=== PATIENT | female | born 1995 | race Caucasian/White ===

== ENCOUNTER 2019-08-28 16:05 | Emergency (ER) | payer BC, OTHER ==
[~2019-08-28] VITALS: Ht 162.6 cm; Wt 96.8 kg
[2019-08-28] MEDS ORDERED: OXYC-517 PO (16:18)
[2019-08-28] MEDS ORDERED: VENTAER INH (16:18)
[2019-08-28] MEDS ORDERED: MORPHINE 4 MG/ML 1ML VIAL/SYRINGE (J2270) IV ONE (17:30)
[2019-08-28] MEDS ORDERED: ONDANSETRON 4MG/2ML VIAL IV ONE (17:30)
[2019-08-28 17:40] LABS: BASO % 0.3 % (0.0-1.0); EOS % 0.2 % (0.0-3.0); HEMOGLOBIN 11.3 g/dl (12.0-15.5); LYMPH # 2.8 10^3/uL (1.5-5.0); LYMPH % 23.8 % (24.0-44.0); MEAN CORPUSCULAR HEMOGLOBIN 29.1 pg (27.0-33.0); MEAN CORPUSCULAR HGB CONC 33.2 g/dl (32.0-36.5); MEAN CORPUSCULAR VOLUME 87.6 fl (80.0-96.0); MONO # 0.6 10^3/uL (0.0-0.8); MONO % 5.4 % (0.0-5.0); NEUTROPHILS # 8.2 10^3/uL (1.5-8.5); NEUTROPHILS % 69.9 % (36.0-66.0); PLATELET COUNT, AUTOMATED 245 10^3/uL (150-450); RED BLOOD COUNT 3.88 10^6/uL (4.00-5.40); WHITE BLOOD COUNT 11.7 10^3/uL (4.0-10.0)
--- NOTE | 2019-08-28 18:10 | REPVR ---
PROCEDURE INFORMATION: Exam: US Pelvis, Transvaginal Exam date and time: 08/28/2019 5:58 PM Age: 23 years old Clinical indication: Pelvic pain; Prior surgery; Surgery date: Post-operative (0-2 days); Additional info: L oophorectomy and salpingectomy yesterday with pain TECHNIQUE: Imaging protocol: Real-time transvaginal pelvic ultrasound with image documentation. Transvaginal imaging was used for better evaluation of the endometrium and adnexa. COMPARISON: No relevant prior studies available. FINDINGS: Uterus/cervix: Uterus measures 7.3 x 2.7 x 4.3 cm. Endometrial echo complex measures 6 mm. Right adnexa: Right ovary measures 3 x 1.6 x 2.8 cm. Volume 7 cc. Normal flow. Left adnexa: Status post left oophorectomy. Free fluid: Small amount of free fluid demonstrated in the cul-de-sac and left adnexal region. Finding likely represents physiologic changes. IMPRESSION: 1. Status post left oophorectomy. 2. Small amount of free fluid demonstrated in the cul-de-sac and left adnexal region. Finding likely represents physiologic changes. 3. Otherwise unremarkable. Electronically signed by: Johnny Santana On 08/28/2019 18:10:38 PM
[2019-08-28 19:55] VITALS: BP 124/57
== END 2019-08-28 19:59 | disposition home or self-care (01) ==
LOC: M ED 16:05
DX: R10.9 Unspecified abdominal pain (principal); Z98.890 Other specified postprocedural states
CPT/HCPCS: 76830; 76856; 80047; 81001; 85025; 93976; 96374; 96375; 99283; J2270; J2405

== ENCOUNTER 2019-10-14 17:46 | Emergency (ER) | payer BC, OTHER ==
[~2019-10-14] VITALS: Ht 162.6 cm; Wt 97.6 kg
[~2019-10-14 17:46] MED LIST: OXYC-517 PO; VENTAER INH
[2019-10-14] MEDS ORDERED: GIAN1TAB (18:00)
[2019-10-14 19:11] LABS: BASO # 0.1 10^3/uL (0.0-0.2); BASO % 0.6 % (0.0-1.0); EOS # 0.3 10^3/uL (0.0-0.5); EOS % 3.3 % (0.0-3.0); HEMATOCRIT 39.3 % (36.0-47.0); HEMOGLOBIN 12.8 g/dl (12.0-15.5); LYMPH # 3.9 10^3/uL (1.5-5.0); LYMPH % 39.7 % (24.0-44.0); MEAN CORPUSCULAR HEMOGLOBIN 28.4 pg (27.0-33.0); MEAN CORPUSCULAR HGB CONC 32.6 g/dl (32.0-36.5); MEAN CORPUSCULAR VOLUME 87.3 fl (80.0-96.0); MONO # 0.4 10^3/uL (0.0-0.8); MONO % 4.4 % (0.0-5.0); NEUTROPHILS # 5.1 10^3/uL (1.5-8.5); NEUTROPHILS % 51.8 % (36.0-66.0); PLATELET COUNT, AUTOMATED 294 10^3/uL (150-450); WHITE BLOOD COUNT 9.8 10^3/uL (4.0-10.0)
[2019-10-14 19:27] LABS: ALBUMIN 3.7 GM/DL (3.2-5.2); BILIRUBIN,DIRECT 0.1 MG/DL (0.0-0.2); BILIRUBIN,TOTAL 0.4 MG/DL (0.2-1.0); TOTAL PROTEIN 8.1 GM/DL (6.4-8.2)
--- NOTE | 2019-10-14 20:52 | REPVR ---
PROCEDURE INFORMATION: Exam: US Abdomen, Limited; Soft Tissue Exam date and time: 10/14/2019 8:43 PM Age: 23 years old Clinical indication: Other: Drainage; Prior surgery; Surgery date: 1-6 months; Surgery type: [employer], lt ov and tube; Additional info: Seroma umbilicus, R/O abscess TECHNIQUE: Imaging protocol: US abdomen. Real time ultrasound with image documentation. Limited exam focused on the soft tissues. COMPARISON: No relevant prior studies available. FINDINGS: Soft tissues: Imaging of the periumbilical region demonstrates a complex mass measuring 2.9 x 2.5 x 2.4 cm with a tapering shaped from superficial to deep, findings suggest that may be related to the presence of an umbilical hernia. Correlation with CT imaging suggested for confirmation, to assess for incarceration, and to exclude other etiologies. IMPRESSION: Imaging of the periumbilical region demonstrates a complex mass measuring as described above. The findings suggest that may be related to the presence of an umbilical hernia. Correlation with CT imaging suggested for confirmation, to assess for incarceration, and to exclude other etiologies. Electronically signed by: Johnny Santana On 10/14/2019 20:52:30 PM
[2019-10-14] MEDS ORDERED: ISOVUE-370 76% 100ML VIAL As Ordered ONE (21:12)
--- NOTE | 2019-10-14 23:02 | REPVR ---
PROCEDURE INFORMATION: Exam: CT Abdomen And Pelvis With Contrast Exam date and time: 10/14/2019 10:31 PM Age: 23 years old Clinical indication: Abnormal findings; Abnormal radiologic finding of the abdomen; Radiologic exam and body structure: Abd US; Additional info: Poss umbilical hernia, radiologist request TECHNIQUE: Imaging protocol: Computed tomography of the abdomen and pelvis with intravenous contrast. Radiation optimization: All CT scans at this facility use at least one of these dose optimization techniques: automated exposure control; mA and/or kV adjustment per patient size (includes targeted exams where dose is matched to clinical indication); or iterative reconstruction. Contrast material: ISOVUE 370; Contrast volume: 100 ml; Contrast route: INTRAVENOUS (IV); COMPARISON: Abdomen, limited US 10/14/2019 8:29 PM FINDINGS: Liver: Normal. No mass. Gallbladder and bile ducts: There has been a cholecystectomy. Pancreas: Normal. No ductal dilation. Spleen: Normal. No splenomegaly. Adrenals: Normal. No mass. Kidneys and ureters: Normal. No hydronephrosis. Stomach and bowel: Unremarkable. No obstruction. No mucosal thickening. Appendix: No evidence of appendicitis. Intraperitoneal space: Unremarkable. No free air. No significant fluid collection. Vasculature: Unremarkable. No abdominal aortic aneurysm. Lymph nodes: Unremarkable. No enlarged lymph nodes. Bladder: Unremarkable as visualized. Reproductive: Unremarkable as visualized. Bones/joints: Unremarkable. No acute fracture. Soft tissues: No evidence of an umbilical or ventral abdominal wall hernia. Inflammatory changes surround the umbilicus with a small ovoid fluid density demonstrated centrally measuring 1.7 x 0.6 cm. Findings suggest possible infection with abscess. IMPRESSION: 1. There has been a cholecystectomy. 2. Inflammatory changes with possible abscess surrounding the umbilicus. No abdominal wall hernia demonstrated. Electronically signed by: Johnny Santana On 10/14/2019 23:02:28 PM
[2019-10-14] MEDS ORDERED: CEPHALEXIN 500 MG CAP PO ONE (23:15)
[2019-10-14] MEDS ORDERED: KEFL500C17 PO (23:15)
[2019-10-14 23:30] VITALS: BP 148/85
== END 2019-10-14 23:32 | disposition home or self-care (01) ==
LOC: M ED 17:46
DX: L76.34 Postprocedural seroma of skin and subcutaneous tissue following other procedure (principal); J45.909 Unspecified asthma, uncomplicated; Z79.3 Long term (current) use of hormonal contraceptives
CPT/HCPCS: 74177; 76705; 80047; 80076; 81001; 83690; 84702; 85025; 99284; Q9967

== ENCOUNTER 2019-11-08 17:35 | Emergency (ER) | payer BC, OTHER ==
[~2019-11-08 17:35] MED LIST changes: +GIAN1TAB; +KEFL500C17 PO
[2019-11-08] MEDS ORDERED: ISOVUE-370 76% 100ML VIAL As Ordered ONE (19:55)
[2019-12-22 18:08] LABS: BASO # 0.1 10^3/uL (0.0-0.2); BASO % 0.6 % (0.0-1.0); EOS # 0.3 10^3/uL (0.0-0.5); EOS % 3.8 % (0.0-3.0); HEMATOCRIT 38.5 % (36.0-47.0); HEMOGLOBIN 12.5 g/dl (12.0-15.5); LYMPH # 3.1 10^3/uL (1.5-5.0); LYMPH % 37.9 % (24.0-44.0); MEAN CORPUSCULAR HEMOGLOBIN 28.5 pg (27.0-33.0); MEAN CORPUSCULAR HGB CONC 32.5 g/dl (32.0-36.5); MEAN CORPUSCULAR VOLUME 87.9 fl (80.0-96.0); MONO # 0.4 10^3/uL (0.0-0.8); NEUTROPHILS # 4.3 10^3/uL (1.5-8.5); NEUTROPHILS % 52.5 % (36.0-66.0); PLATELET COUNT, AUTOMATED 257 10^3/uL (150-450); RED BLOOD COUNT 4.38 10^6/uL (4.00-5.40); WHITE BLOOD COUNT 8.2 10^3/uL (4.0-10.0)
[2020-01-27 11:46] LABS: ALBUMIN 3.4 GM/DL (3.2-5.2); ALT/SGPT 22 U/L (12-78); BILIRUBIN,DIRECT 0.2 MG/DL (0.0-0.2); BILIRUBIN,TOTAL 0.4 MG/DL (0.2-1.0); BLOOD UREA NITROGEN 8 MG/DL (7-18); CALCIUM LEVEL 8.7 MG/DL (8.5-10.1); CARBON DIOXIDE LEVEL 25 MEQ/L (21-32); CHLORIDE LEVEL 112 MEQ/L (98-107); CREATININE FOR GFR 0.74 MG/DL (0.55-1.30); GLOMERULAR FILTRATION RATE > 60.0 (>60); GLUCOSE, FASTING 90 MG/DL (70-100); POTASSIUM SERUM 4.2 MEQ/L (3.5-5.1); SODIUM LEVEL 142 MEQ/L (136-145); TOTAL PROTEIN 7.1 GM/DL (6.4-8.2)
== END 2019-11-08 22:30 | disposition home or self-care (01) ==
LOC: M ED 17:35
DX: L76.34 Postprocedural seroma of skin and subcutaneous tissue following other procedure (principal); L03.316 Cellulitis of umbilicus; N83.01 Follicular cyst of right ovary; J45.909 Unspecified asthma, uncomplicated; Z79.3 Long term (current) use of hormonal contraceptives
CPT/HCPCS: 36415; 74177; 76705; 80048; 80076; 83605; 85025; 99283; Q9967

== ENCOUNTER → 2020-04-18 | Outpatient (CLI) | payer BC, OTHER ==
[~2020-04-18] MED LIST changes: +REGL10TA6 PO
== END ==
LOC: M LAB 11:22
PROVIDERS: ATTEND Obstetrics & Gynecology
DX: Z32.00 Encounter for pregnancy test, result unknown (principal)

== ENCOUNTER 2020-05-07 17:43 | Emergency (ER) | payer BC, OTHER ==
[~2020-05-07] VITALS: Ht 162.6 cm; Wt 100.0 kg
[~2020-05-07 17:43] MED LIST changes: -REGL10TA6 PO
--- OUTSIDE RECORDS SUMMARY | 2020-05-07 17:50 | CCD | Continuity of Care Document ---
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 Actor Name Role Phone Evert Butler MD AUTM Unavailable [facility] AUTM [employer] AUTM [phone] Problems Description No Information Available Social History Type Date Description Comments Sex Unknown ETOH Use Occasionally consumes alcohol Tobacco Use Start: Unknown The patient has never vaped Tobacco Use Start: Unknown Patient has never smoked Smoking Status Reviewed: 04/15/20 Patient has never smoked Allergies, Adverse Reactions, Alerts Description No Known Drug Allergies Medications Active Medications SIG Qnty Indications Ordering Provide r Date Ondansetron 4mg Tablets Dispers dissolve 1 tablet in mouth every 8 hours as needed for nausea 30tabs R11.2 Saeid Heart JR., M.D. 04/15/2020 Tylenol Unknown Immunizations Description No Information Available Vital Signs Date Vital Result Comment 04/15/2020 6:06pm BP Systolic 116 mmHg BP Diastolic 74 mmHg Heart Rate 94 /min Respiratory Rate 15 /min O2 % BldC Oximetry 99 % Body Temperature 98.2 F Weight 220.00 lb Height 64 inches 5'4" BMI (Body Mass Index) 37.8 kg/m2 Results Description No Information Available Procedures Description No Information Available Medical Devices Description No Information Available Encounters Type Date Location Provider Dx Diagnosis Office Visit 04/15/2020 5:35p Main Office KATHIE Raymundo R11 .2 Nausea with vomiting, unspecified Z33.1 state, incidental Z20.828 Contact w and exposure to ot h viral communicable diseases Assessments Date Code Description Provider 04/15/2020 R11.2 Nausea with vomiting, unspecifie d KATHIE Raymundo 04/15/2020 Z33.1 state, incidental [place] KATHIE Moreno 04/15/2020 Z20.828 Contact with and (mayo spected) exposure to other viral communicable diseases KATHIE Raymundo Plan of Treatment No Information Available Functional Status Description No Information Available Mental Status Description No Information Available Referrals Refer to Dr Reason for Referral Status Appt Date Sly RAUSCH, Saeid Martinez M.D. Created [facility] [place] [address] [phone]
--- OUTSIDE RECORDS SUMMARY | 2020-05-07 17:50 | CCD | Continuity of Care Document ---
Author Author Suly LUTZ Organization Unknown Address [address] [place] [address] [place] [address] Phone [phone] Care Team Providers Care Deputy Clerk Of Court Name Role Phone Evert Butler MD AUTM Unavailable [facility] AUTM [employer]M [phone] Problems Description No Information Available Social History [...] Date Sly RAUSCH, Saeid Martinez M.D. Created [facility] [place] [address] [phone]
--- OUTSIDE RECORDS SUMMARY | 2020-05-07 17:51 | CCD ---
Author Author [facility] Address Unknown Phone Unavailable Care Team Providers Care Management Instructor Name Role Phone Josh [phone] MD Luis RUSSELL Unavailable Unavailable Josh [phone] MD Lius RUSSELL Unavailable Unavailable Josh, [phone] MD Luis RUSSELL Unavailable Unavailable Mandappa, Selina CASAC Unavailable Unavailable Mandappa, Selina CASAC Unavailable Unavailable Mandappa, Selina CASAC Unavailable Unavailable Mandappa, Selina CASAC Unavailable Unavailable Chepe Giraldo MD Unavailable Unavailable Chepe Giraldo MD Unavailable Unavailable Chepe Giraldo MD Unavailable Unavailable Chepe Giraldo MD Unavailable Unavailable Chepe Giraldo MD Unavailable Unavailable Chepe Giraldo MD Unavailable Unavailable Chepe Giraldo MD Unavailable Unavailable Chepe Giraldo MD Unavailable Unavailable Chepe Giraldo MD Unavailable Unavailable Chepe Giraldo MD Unavailable Unavailable Chepe Giraldo MD Unavailable Unavailable Chepe Giraldo MD Unavailable Unavailable Josefina Muse MD Unavailable Unavailable Doctor Provided, Family PHYS No Family Unavailable U navailable LETTIERE, Austen CHE PA Unavailable Unavailable LETTIERE, Austen CHE PA Unavailable Unavailable LETTIERE, Austen CHE PA Unavailable Unavailable LETTIERE, Austen CHE PA Unavailable Unavailable LETTIERE, Austen CHE PA Unavailable Unavailable LETTIERE, Austen CHE PA Unavailable Unavailable LETTIERE, Austen CHE PA Unavailable Unavailable LETTIERE, Austen CHE PA Unavailable Unavailable LETTIERE, Austen CHE PA Unavailable Unavailable LETTIERE, Austen CHE PA Unavailable Unavailable LETTIERE, Austen CHE PA Unavailable Unavailable LETTIERE, Austen CHE PA Unavailable Unavailable LETTIERE, Austen CHE PA Unavailable Unavailable LETTIERE, A CHINEDU PA Unavailable Unavailable LETTIERE, A CHINEDU PA Unavailable Unavailable LETTIERE, A CHINEDU PA Unavailable Unavailable LETTIERE, A CHINEDU PA Unavailable Unavailable LETTIERE, A CHINEDU PA Unavailable Unavailable LETTIERE, A CHINEDU PA Unavailable Unavailable LETTIERE, A CHINEDU PA Unavailable Unavailable LETTIERE, A CHINEDU PA Unavailable Unavailable LETTIERE, A CHINEDU PA Unavailable Unavailable LETTIERE, A CHINEDU PA Unavailable Unavailable LETTIERE, A CHINEDU PA Unavailable Unavailable LETTIERE, A CHINEDU PA Unavailable Unavailable LETTIERE, A CHINEDU PA Unavailable Unavailable LETTIERE, A CHINEDU PA Unavailable Unavailable LETTIERE, A CHINEDU PA Unavailable Unavailable LETTIERE, A CHINEDU PA Unavailable Unavailable Re-disclosure Warning The records that you are about to access may contain information from federally-assisted alcohol or drug abuse programs. If such information is present, then the following federally mandated warning applies: This information has been disclosed to you from records protected by federal confidentiality rules (42 CFR part 2). The federal rules prohibit you from making any further disclosure of this information unless further disclosure is expressly permitted by the written consent of the person to whom it pertains or as otherwise permitted by 42 CFR part 2. A general authorization for the release of medical or other information is NOT sufficient for this purpose. The Federal rules restrict any use of the information to criminally investigate or prosecute any alcohol or drug abuse patient.The records that you are about to access may contain highly sensitive health information, the redisclosure of which is protected by Article 27-F of the [facility] Public Health law. If you continue you may have access to information: Regarding HIV / AIDS; Provided by facilities licensed or operated by the [facility] Office of Mental Health; or Provided by the [facility] Office for People With Developmental Disabilities. If such information is present, then the following [facility] mandated warning applies: This information has been disclosed to you from confidential records which are protected by state law. State law prohibits you from making any further disclosure of this information without the specific written consent of the person to whom it pertains, or as otherwise permitted by law. Any unauthorized further disclosure in violation of state law may result in a fine or shelter sentence or both. A general authorization for the release of medical or other information is NOT sufficient authorization for further disc losure. Family History Family Member Name Family Member Gender Family Member Status Date o f Status Description Data Source(s) Unknown Condition [facility] Unknown Condition [facility] Encounters Encounter Providers Location Date Indications Data Source(s ) Outpatient Attender: CHINEDU voss 04/15/2020 04:35:00 PM EST [facility] ([facility]) Recurring Patient Referrer: Selina Levin CASAC 01/22/2020 03:45:50 PM EDT [facility] Outpatient Attender: Frankie Giraldo MDReferrer: No Family Doctor Provided 12/13/2019 01:48:00 PM EDT - 12/13/2019 02:15:00 PM EDT [facility] Outpatient Attender: [phone] Luis Moreno MDReferre r: No Family Doctor Provided 12/03/2019 12:23:00 PM EDT - 12/03/2019 01:00:00 PM EDT [facility] Outpatient Attender: Josefina Muse MDReferrer: No Family Doctor Provided 12/03/2019 10:50:00 AM EDT - 12/03/2019 12:10:00 PM EDT [facility] Outpatient Attender: Frankie Giraldo MD 0 02:16:00 PM EDT - 11/19/2019 02:58:[facility] Medication Brand Name Start Date Product Form Dose Route Admi nistrative Instructions Pharmacy Instructions Status Indications Reaction Description Data Source(s) Ondansetron 4 MG Disintegrating Oral Tablet Ondansetron 04/15/2020 12:00:00 AM EST active [facility] ([facility], [facility]) Fluconazole 150 MG Oral Tablet Fluconazole 12/03/2019 12:10:48 PM EDT 150 MG completed [facility] Dicloxacillin 500 MG Oral Capsule Dicloxacillin 12/03/2019 12:05:58 PM EDT 500 MG completed [facility] 800-160 mg 10/25/2019 12:00:00 AM EDT tablet 14 TAKE ONE TABLET BY MOUTH TWICE A DAY FOR 7 DAYS TAKE ONE TABLET BY MOUTH TWICE A DAY FOR 7 DAYS SOLD: 10/25/2019 [facility] Insurance Providers Payer name Policy type / Coverage type Policy ID Covered republican ID Covered republican's relationship to parks Policy Parks Plan Information [facility] HUMANA [id number] [place] [id number] [id number] Blue Cross Blue Shield P [id number] SELF [id number] [place] BCBS B [id number] S [id number] [place] [id number] S [id number] EXCELLUS BCBS B [id number] S H [id number] NCO EPALS [id number] SP [id number] Surgeries/Procedures Procedure Description Date Indications Data Source(s) RADEX ANKLE COMPLETE MINIMUM 3 VIEWS 12/31/2019 12:00: 00 AM EDT [facility] ([facility]) RADEX FOOT COMPLETE MINIMUM 3 VIEWS 12/31/2019 12:00:0 0 AM EDT [facility] ([facility]) Results ID Date Data Source [id number] 04/15/2020 12:00:00 AM EST [facility] Name Value Range Interpretation Code Description Data Ashley rce(s) Supporting Document(s) SARS coronavirus 2 Ag Negative [facility] This lab was [facility] by [facility] ID Date Data Source [id number] 12/13/2019 01:54:00 PM EDT [facility] Name: DAO OWENS : 1995 Age: 24 MR#: [id number] Admit Date: 12/13/19 Provider: Frankie Giraldo MD Room #: Consulting Provider: Dictation Date: 12/13/19 Intake Vital Signs 12/13/19 13:57 Current Height 5 ft 4 in Current Weight 213 lb Weight Measurement Method Most recent on chart BMI 36.6 BP 120/80 Blood Pressure Location Lt brachial Position Sitting Pulse 100 Pulse Strength Normal Pulse Source Pulse Oximeter Temp 98.1 F Temp Source Oral Pulse Oximetry (%) 98 Oxygen Delivery Method room air Intake Visit Reasons: Post-Op follow-Up Nurse Note: wound check Dean [employer] Required: No Is patient in pain?: Yes (abdominal tenderness) Pain scale (1-10): 1 Allergies No Known Drug Allergies Allergy (Unverified 12/03/19 17:52) Coronavirus Screening Screening Have you traveled outside of [facility] or [facility] in the last 14 days.: No Has patient experienced coronavirus symptoms: No PFSH Medical History Bladder problem Rickets Right ovarian cyst Surgical History History of left salpingo-oophorectomy Hx laparoscopic cholecystectomy Aldrich teeth extracted Family History Father Asthma Mother Cancer Breast cancer Ovarian cancer Cervical cancer Grandmother Breast cancer Aunt Breast cancer Grandfather Colon cancer Social History Does the Patient have a Healthcare Proxy: No Does Patient have a DNR?: No Does Patient have a Living Will?: No Does the Patient have a MOLST?: No Advance Directives on File or in chart?: No household members: spouse housing: house marital status: lives independently: Yes number of children: 0 highest education level completed: high school graduate 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: [employer] intermediate: No current occupational status: unemployed pets and animals: Yes pets and animals: dog(s) Hx Recent Travel (where): No sexually active: Yes do you think of yourself as: straight/heterosexual current gender identity: female Smoking Status: Never smoker alcohol intake: current alcohol intake frequency: a few times a week substance use type: former substance user Date of last use: marijuana when young seatbelt use: always helmet use: Yes 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 She continues to have some problems with her umbilical trocar site. This continues to drain scants amounts. She has no fever. She is noticed no redness. There is no bleeding. Exam GI Other: Her trocar incision is in the depth of the umbilicus. There is an open area that admits the cotton end of a cotton tip applicator. There is a considerable amount of granulation tissue around this and extruding from it. There is no abscess. There is no sign of infection. There is no cellulitis or erythema. Assessment Plan Assessment Plan (1) Encounter for Postoperative Care: Code(s): Z48.89 - Encounter for other specified surgical aftercare Additional Comments Additional Comments: Persistent nonhealing tract in the umbilical trocar site. I anticipate excess granulation tissue is preventing this from healing. This area was treated with silver nitrate. Gauze packing was then placed in the umbilicus. Of asked her to change the gauze twice daily. I will see her back in a week's time to see if we have made any progress. If it looks improved we will continue with the silver nitrate. Dictated by: <Electronically signed by Frankie Giraldo MD> Frankie Giraldo MD 12/13/19 1439 Frankie Giraldo MD SIGNATURE DA Report Cosigners: D: RICCI 12/13/19 1354 T: TONY 12/13/19 1354 CC: Name Value Range Interpretation Code Description Data Ashley rce(s) Supporting Document(s) ID Date Data Source [id number] 12/03/2019 12:32:00 PM EDT [facility] Name: DAO OWENS : 1995 Age: 24 MR#: [id number] Admit Date: 12/03/19 Provider: Luis Moreno MD Room #: Consulting Provider: Dictation Date: 12/03/19 Intake Vital Signs 12/03/19 12:33 Current Height 5 ft 4 in Current Weight 213 lb Weight Measurement Method Most recent on chart BMI 36.6 BP 138/88 Blood Pressure Location Lt brachial Position Sitting Respiration 18 Pulse 82 Pulse Strength Normal Pulse Source Pulse Oximeter Temp 99.1 F Temp Source Oral Pulse Oximetry (%) 98 Oxygen Delivery Method room air Intake Visit Reasons: Post-Op follow-Up Nurse Note: Post Op incision check. Benign tumor removal of ovary and fallopian tube 08/27/19. Dean Of Graduate Studies Required: No Accompanied by: Self / Same as Patient Is patient in pain?: No Allergies No Known Drug Allergies Allergy (Unverified 12/03/19 13:37) Coronavirus Screening Screening Have you traveled outside of [facility] or [facility] in the last 14 days.: No Has patient experienced coronavirus symptoms: No PFSH Medical History Bladder problem Rickets Right ovarian cyst Surgical History History of left salpingo- oophorectomy Hx laparoscopic cholecystectomy Aldrich teeth extracted Family History Father Asthma Mother Cancer Breast cancer Ovarian cancer Cervical cancer Grandmother Breast cancer Aunt Breast cancer Grandfather Colon cancer Social History Does the Patient have a Healthcare Proxy: No Does Patient have a DNR?: No Does Patient have a Living Will?: No Does the Patient have a MOLST?: No Advance Directives on File or in chart?: No household members: spouse housing: house marital status: lives independently: Yes number of children: 0 highest education level completed: high school graduate 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: [employer] intermediate: No current occupational status: unemployed pets and animals: Yes pets and animals: dog(s) Hx Recent Travel (where): No sexually active: Yes do you think of yourself as: straight/heterosexual current gender identity: female alcohol intake: current alcohol intake frequency: a few times a week substance use type: former substance user Date of last use: marijuana when young seatbelt use: always helmet use: Yes 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 working smoke detector in home: Yes fire extinguisher in home: Yes carbon monox detector in home: Yes firearms in home: No do you feel safe at home: Yes victim of physical abuse: No victim of emotional abuse: No victim of sexual abuse: No additional social history: is not an organ donor Female Reproductive History Menstrual Age of Menarche: 19 Duration of menses: other (varies- recently staying around 5 days) control method: none Ab induced: 0 Ab spontaneous: 0 Ectopics: 0 HPI Additional HPI HPI Details: 24-year-old female who underwent laparoscopic left salpingo-oophorectomy apparently for ovarian fibroma on August 26. Since that time she has had trouble with her umbilical wound with intermittent drainage. In review of her CT scan and Ultrasound results from [facility], I can see that the complex fluid collection in the umbilicus region was as large as 2.5 cm and then shrank to 1.7 cm by October. She states the skin is open and drains but is less now with the depth of the wound becoming smaller over time. Review of Systems Const All systems reviewed are unremarkable except as noted in H PI and below ENT Reports system reviewed and no additional complaints, except as documented Card Reports system reviewed and no additional complaints, except as documented Resp Reports system reviewed and no additional complaints, except as documented GI Reports system reviewed and no additional complaints, except as documented, Reports change in bowel habits and Reports diarrhea Genitourinary: Reports system reviewed and no additional complaints, except as documented Musc Reports system reviewed and no additional complaints, except as documented Skin/Breast Reports system reviewed and no additional complaints, except as documented Neuro Reports system reviewed and no additional complaints, except as documented Psych Reports system reviewed and no additional complaints, except as documented Endo Reports system reviewed and no additional complaints, except as documented Justin/Lymph Reports system reviewed and no additional complaints, except as documented and Reports easy bruising Aller/Immun Reports system reviewed and no additional complaints, except as documented Exam Const General: cooperative, healthy appearing, no acute distress, well developed and well groo med Nutritional Appearance: well nourished Orientation: alert, awake and oriented x3 HENMT Head: normal to inspection, normocephalic, atraumatic and no scalp tenderness Ears: hearing grossly normal bilaterally, external ears normal, TM's normal bilaterally, EAC's normal and no periauricular adenopathy General nose exam: external nose normal, nares normal, no nasal polyps, septum normal and no nasal discharge Face and sinus: normal facial exam and sinuses nontender Mouth: oral mucosae normal, lip normal, tongue normal, oropharynx normal and moist mucous membranes Throat: posterior oropharynx normal Eyes General: appearance normal, both eyes and all related structures Periorbital: periorbital findings normal Eyelids: eyelids normal Conjunctivae: conjunctivae normal Sclera: sclerae normal Pupils: PERRL EOM: EOM intact bilaterally Direct ophthalmoscopy: normal light reflex Neck Neck: normal visual inspection, full ROM, no lymphadenopathy, supple and no JVD present Neck mass: No Thyroid: thyroid normal Carotids: normal carotid upstroke Resp Effort Inspection: normal respiratory effort Auscultation: clear to auscultation bilaterally Percussion: percussion normal Cardio Jugular venous pressure: no JVD Palpation: normal PMI Rate: regular rate Rhythm: regular rhythm Heart Sounds: S1 normal and S2 normal Pulses: normal peripheral pulses GI Inspection: Yes normal to inspection Palpation: soft, no hepatosplenomegaly, no aortic enlargement and nontender Percussion: normal to percussion Auscultation: normal bowel sounds Other: Wound in umbilicus with depth of about 0.5 cm. Minimal drianage. Musc Cervical Spine: normal cervical lordosis and cervical ROM normal Thoracic/Lumbar Spine: thoracic and lumbar spine normal to inspection, thoraco-lumbar ROM normal andstraight leg raise negative bilaterally Pelvis: no pain with anterior-posterior compression and no pain with lateral compression Skin Lesions: no lesions Rashes: no rashes Hair: normal Nails: normal Neuro General: patient alert, patient awake, patient oriented x3, gait normal, moves all extremities and normal light touch, pain and propioception Cranial Nerves: CN's II-XII intact bilaterally Cognition: normal cognition Speech: speech normal Gait: normal gait Motor: muscle tone normal throughout and strength 5/5 throughout Sensory Exam: no sensory deficits noted Extrem General: normal to inspection, full ROM, capillary refill normal, no clubbing, cyanosis or edema andno muscle atrophy Psych Appearance: grossly normal and well kempt Mental Status: mental status grossly normal Speech and Movement: speech and movement normal Mood: congruent mood Affect: normal affect Attitude: cooperative Thought Process: normal Thought Content: normal Insight: insight good Judgment: judgment good Assessment Plan Assessment Plan (1) Encounter for Postoperative Care: Code(s): Z48.89 - Encounter for other specified surgical aftercare Plan - Luis Moreno: 24-year-old female who underwent laparoscopic left salpingo-oophorectomy apparently for ovarian fibroma on August 26. Since that time she has had trouble with her umbilical wound with intermittent drainage. In review of her CT scan and Ultrasound results from [facility], I can see that the complex fluid collection in the umbilicus region was as large as 2.5 cm and then shrank to 1.7 cm by October. She states the skin is open and drains but is less now with the depth of the wound becoming smaller over time. -I asked her to continue dressing changes and keeping the skin opened to let it drain. We will giveit 2 weeks to see if it closes, if not, she may need excision of the tract. Dictated by: <Electronically signed by Luis Moreno > Luis Moreno 12/03/19 1343 Luis Moreno SIGNATURE DA Report Cosigners: D: [email or web address] 12/03/19 1232 T: OTILIA 12/03/19 1232 CC: Name Value Range Interpretation Code Description Data Ashley rce(s) Supporting Document(s) ID Date Data Source [id number] 12/03/2019 11:12:00 AM EDT [facility] Patient Name: DAO OWENS : 1995 Sex: F Pt Unit #: [id number] [facility] Provider: Visit Date/Time: 12/03/19 Primary Insurance: BC/BS [facility] Secondary Insurance: PRIME Intake Vital Signs 12/03/19 11:17 Current Height 5 ft 4 in Current Weight 214 lb 8 oz Weight Measurement Method Standing Scale BMI 36.8 BP 124/80 Blood Pressure Location Lt brachial Position Sitting Respiration 18 Pulse 86 Pulse Strength Normal Pulse Source Pulse Oximeter Pulse Oximetry (%) 96 Oxygen Delivery Method room air Intake Visit Reasons: Encounter to Establish Care Nurse Note: Pt here to establish care. States that her testosterone is low; states that her ovaries are not functioning properly and has a low libido. Also here to discuss that she had a left salpingo-oophorectomy due to a 4cm mass on her ovary which came back as a benign fibroma in June 2019. States that she has a build up of fluid on the belly button incision and general surgery referred her here to have it looked at. Pt also had an u/s done in August time and found a cyst on her right ovary. Pt states that intercourse feels different; states it is a little painful since having the surgery. States that orgasms and ovulation is painful since surgery. Pt is worried about infertility due to these issues she is having. States her mom also could not get and she was her "miracle baby". Her mom also had breast CA, ovarian CA, cervical CA and bone CA. Breasts arealways sore and tender, but feels it is a hormonal thing. No other concerns. Dean Of Graduate Studies Required: No Accompanied by: Self / Same as Patient Is patient in pain?: No Allergies No Known Drug Allergies Allergy (Unverified 12/03/19 17:52) Is last menstrual period known: Yes Last menstrual period: 11/07/19 Post menopausal: No Patient : No Vision Wearing glasses?: No Fall Risk History of falls: No Ambulatory Aid:: None Gait/Transferring:: Normal Medications:: No High Risk Medications HIV Testing Offer - ages 13-64 HIV testing Offer: No SBIRT Annual Questionnaire Are you currently in recovery for alcohol or substance use?: No Do you need a note to return Do you need a note to return to daycare/school/sports/work: No Coronavirus Screening Screening Have you traveled outside of [facility] or [facility] in the last 14 days.: No Has patient experienced coronavirus symptoms: No PFSH Medical History Bladder problem Rickets Right ovarian cyst Surgical History History of left salpingo- oophorectomy Hx laparoscopic cholecystectomy Aldrich teeth extracted Family History Father Asthma Mother Cancer Breast cancer Ovarian cancer Cervical cancer Grandmother Breast cancer Aunt Breast cancer Grandfather Colon cancer Social History Does the Patient have a Healthcare Proxy: No Does Patient have a DNR?: No Does Patient have a Living Will?: No Does the Patient have a MOLST?: No Advance Directives on File or in chart?: No household members: spouse housing: house marital status: lives independently: Yes number of children: 0 highest education level completed: high school graduate 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: [employer] intermediate: No current occupational status: unemployed pets and animals: Yes pets and animals: dog(s) Hx Recent Travel (where): No sexually active: Yes do you think of yourself as: straight/heterosexual current gender identity: female alcohol intake: current alcohol intake frequency: a few times a week substance use type: former substance user Date of last use: marijuana when young seatbelt use: always helmet use: Yes 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 working smoke detector in home: Yes fire extinguisher in home: Yes carbon monox detector in home: Yes firearms in home: No do you feel safe at home: Yes victim of physical abuse: No victim of emotional abuse: No victim of sexual abuse: No additional social history: is not an organ donor Female Reproductive History Menstrual Age of Menarche: 19 Duration of menses: other (varies- recently staying around 5 days) Date of last menstrual period: 11/07/19 control method: none Total pregnancies: 0 Full term: 0 Premature: 0 Ab induced: 0 Ab spontaneous: 0 Ectopics: 0 Multiple births: 0 HPI Additional HPI HPI Details: 24-year-old CF LMP: 11/07/2019 x5 days, WNL. Patient status post laparoscopic left salpingo- oophorectomy for 4 cm pelvic mass, diagnosis benign fibroma, on 08/27/2019, in [facility]. [facility]. In February 2019, patient had an IUD placed in her uterus, it was very crampy and painful for several months, in May 2019, IUD was removed. Continued to have pelvic pain on and off, but worsening, so in August 2019 she had a laparoscopic procedure shown above. Ever since that procedure, she has had CAT scans and pelvic sonograms which shows that she is got fluid in her belly. And she has also had drainage from her umbilical incision since then. Patient moved with to [place], recently, he is in the . Was evaluated by general surgery at [facility] on 11/20/2019. She also told him she had right lower quadrant pain on and off. Her umbilical wound was cleaned at the general surgery, and she was told she may have to be taken to surgery to clean it properly. Until then she was instructed on how to clean it at home. Patient states ovulation has been painful. Has significant coital pain, with severe orgasmic pain. As a result she has been avoiding coitus. Was asked to come to PHYSICAL TRAINER, because of possibility of ovarian cyst in the right lower quadrant. Patient states she desires future fertility, and she is worried she may lose it with all the things happening to to her now. No other complaints. Review of Systems Const Denies anorexia, Denies fatigue, Denies fever(s), Denies weight gain and Denies weight loss ENT Denies dysphagia GI Reports abdominal pain, Denies change in bowel habits, Denies dysphagia, Denies early satiety, Denies heartburn, Denies diarrhea, Denies nausea and Denies vomiting Genitourinary: Reports dyspareunia, dysmenorrhea, pelvic pain and sexual dysfunction; Denies urinaryfrequency, urinary hesitancy, urinary urgency or vaginal discharge Endo Denies fatigue Exam Const General: cooperative, healthy appearing, no acute distress, well developed and well groomed Nutritional Appearance: well nourished Orientation: alert, awake and oriented x3 HENMT Head: normal to inspection, normocephalic and atraumatic Ears: hearing grossly normal bilaterally and external ears normal General nose exam: external nose normal, nares normal, septum normal and no nasal discharge Face and sinus: normal facial exam Mouth: oral mucosae normal, lip normal, tongue normal and moist mucous membranes GI Inspection: Yes normal to inspection and Yes incision (Small pus around wound in umbilicus.) Palpation: soft (Flat.), no hepatosplenomegaly, aortic enlargement and tender (Moderate periumbilical tenderness.) Percussion: normal to percussion Auscultation: normal bowel sounds Assessment Plan Assessment Plan (1) Encounter to establish care with new doctor: Code(s): Z76.89 - Persons encountering health services in other specified circumstances Plan - Josefina Muse MD: 1. Patient with umbilical wound infection, status post laparoscopic procedure done in [place]. (2) Postoperative wound infection: Status: Acute Code(s): T81.49XA - Infection following a procedure, other surgical site, initial encounter SNOMED Code(s): 71430052 Category: Medical Plan - Josefina Muse MD: 1. Umbilical wound infection. 2. Dicloxacillin 500 mg p.o. 4 times daily x14 days. Diflucan 150 mg p.o. weekly as needed Puja. 3. Patient advised to see general surgery for definitive solution to umbilical wound infection. Medications: New: dicloxacillin 500 mg PO QID 14 days 56 caps 0RF wound infection (3) Primary female infertility: Status: Acute Code(s): N97.9 - Female infertility, unspecified SNOMED Code(s): 5326303 Category: Medical Plan - Josefina Muse MD: 1. Primary infertility. 2. Patient to be referred to [facility] for consultation on future fertility. Orders Other Medications: New: fluconazole 150 mg PO QWEEK 2 weeks PRN 2 tabs 2RF Puja Follow Up: 1 Month Electronically Signed By: <Electronically signed by Josefina Muse MD> Date/Time Signed: 12/03/19 1811 Name Value Range Interpretation Code Description Data Ashley rce(s) Supporting Document(s) ID Date Data Source [id number] 11/19/2019 02:03:00 PM EDT [facility] Name: DAO OWENS : 1995 Age: 24 MR#: [id number] Admit Date: 11/19/19 Provider: Frankie Giraldo MD Room #: Consulting Provider: Dictation Date: 11/19/19 Intake Vital Signs 11/19/19 14:20 Current Height 5 ft 4 in Current Weight 213 lb Weight Measurement Method Stated by Patient BMI 36.6 BP 120/62 Blood Pressure Location Lt brachial Position Sitting Pulse 104 H Pulse Strength Normal Pulse Source Pulse Oximeter Temp 98.4 F Temp Source Oral Pulse Oximetry (%) 98 Oxygen Delivery Method room air Intake Visit Reasons: Post Op Incision check Nurse Note: pt states had left ovary and tube 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 a benign tumor Dean Of Graduate Studies Required: No Is patient in pain?: Yes (umbilical area) Pain scale (1-10): 2 Allergies No Known Drug Allergies Allergy (Unverified 11/19/19 14:23) Coronavirus Screening Screening Have you traveled outside of [facility] or [facility] in the last 14 days.: No Has patient experienced coronavirus symptoms: No [facility] Medical History (Updated 11/19/19 @ 14:32 by Sera Sheehan) Right ovarian cyst Surgical History History of left salpingo-oophorectomy Hx laparoscopic cholecystectomy Family History Father Asthma Mother Cancer Breast cancer Social History Smoking Status: Former smoker alcohol intake: current alcohol intake frequency: a few times a week HPI Additional HPI HPI Details: Dao is a 24-year-old female who underwent laparoscopic left salpingo- oophorectomy apparently for benign tumor as well. This was done August 26. Since that time she has had trouble with her umbilical wound. It occasionally drains. It is reddened. It is sore. She does not have any fever. She has had this evaluated by her surgeon as well as a couple of times at [facility]. Apparently she had been on antibiotics for 2 courses. This is continued to fester and not heal. In addition to her wound she had multiple other complaints specifically. Review of Systems Const All systems reviewed are unremarkable except as noted in HPI and below Reports headache(s) Eyes Reports system reviewed and no additional complaints, except as documented ENT Reports system reviewed and no additional complaints, except as documented, Reports headache(s), Reports post nasal drip and Reports sore throat Card Reports system reviewed and no additional complaints, except as documented Resp Reports system reviewed and no additional complaints, except as documented and Reports other Details: asthma GI Reports system reviewed and no additional complaints, except as documented, Reports abdominal pain, Reports change in janeth l habits, Reports cramping, Reports heartburn and Reports diarrhea Genitourinary: Reports system reviewed and no additional complaints, except as documented Musc Reports system reviewed and no additional complaints, except as documented and Reports arthralgias (left knee) Skin/Breast Reports system reviewed and no additional complaints, except as documented Neuro Reports system reviewed and no additional complaints, except as documented and Reports headache(s) Psych Reports system reviewed and no additional complaints, except as documented, Reports depression, Reports mood swings and Reports panic attacks Endo Reports system reviewed and no additional complaints, except as documented Justin/Lymph Reports system reviewed and no additional complaints, except as documented, Reports easy bleeding and Reports easy bruising Aller/Immun Reports system reviewed and no additional complaints, except as documented and Reports other (rash right forearm) Exam Const General: cooperative, healthy appearing, comfortable and no acute distress Orientation: alert, awake and oriented x3 GI Other: Nondistended contour. Bowel sounds are normal. She has no mass organomegaly. She has multiple well-healed trocar sites from her cholecystectomy. She has 3 trocar sites from her laparoscopy in August. The left upper quadrant and lower midline trocar sites are well-healed. The infraumbilical trocar site which extends into the umbilicus is raised reddened. There is an area ofinflammatory granulation tissue present. There is no abscess. There is no necrotic tissue. There is no evidence of hernia. This wound was probed and a small cavity noted underneath the inflammatory tissue. This inflammatory tissue was dilated and then inflammatory tissue debrided sharply and bluntly. The cavity admits the full cotton of a cotton tip applicator. I do not see anyretained suture. Again there is no evidence of abscess or necrotic tissue. The wound was packed with a dry gauze. Assessment Plan Assessment Plan (1) Encounter for postoperative wound care: Code(s): Z48.89 - Encounter for other specified surgical aftercare (2) Right ovarian cyst: Status: Inactive Code(s): N83.201 - Unspecified ovarian cyst, right side SNOMED Code(s): 52245599 Category: Medical Additional Comments Additional Comments: Dao is a 24-year-old female who underwent laparoscopy August 26. Her umbilical wound has failed to heal completely. I suspect she has some inflammation due to reaction from the subcuticular suture. I do not see any suture that I can remove. I did open her wound little more widely in the office. Was cleaned with a Q-tip and then packed with a dry gauze. I have asked her to leave the gauze alone today. Beginning tomorrow she is to remove the gauze in the shower daily. Twice a day morning and night she is to clean the cavity with a Q-tip and then reinsert the corner of a gauze sponge to keep the wound open so that he can heal by secondary intention. She is little area at first but agreed to give it a try. With regards to her other complaint specifically menstrual discomfort I recommended she follow-up with her ticket seller. I have asked her to contactthe surgery clinic if she does not get this to heal in the next 1 to 2 weeks. Dictated by: <Electronically signed by Frankie Giraldo MD> Frankie Giraldo MD 11/19/19 1501 Frankie Giraldo MD SIGNATURE DA Report Cosigners: D: RICCI 11/19/19 1403 T: TONY 11/19/19 1403 CC: Name Value Range Interpretation Code Description Data Ashley rce(s) Supporting Document(s) Procedure Social History Code Duration Value Status Description Data Source(s ) Smoking 04/15/2020 12:00:00 AM EST Patient has never smoked co mpleted Patient has never smoked [facility] ([facility]) 12/03/2019 11:27:13 AM EDT Never smoker completed Never s [facility] Smoking 12/03/2019 11:27:00 AM EDT Never smoker completed Never s [facility] 11/19/2019 02:27:46 PM EDT Former smoker completed Former smoker [facility] Smoking 11/19/2019 02:27:00 PM EDT Former smoker completed Former smoker [facility] Vital Signs ID Date Data Source UNK Name Value Range Interpretation Code Description Data Source(s) Body mass index (BMI) [Ratio] 37.8 kg/m2 37.8 k g/m2 [facility] ([facility]) Body height 64 [in_i] 64 [in_i] [facility] ([facility]) 5'4" Body weight 220.00 [lb_av] 220.00 [lb_av] MEDEN T ([facility], [facility]) Body temperature 98.2 [degF] 98.2 [degF] [facility] ([facility], [facility]) Oxygen saturation in Arterial blood by Pulse oximetry 99 % 99 % [facility] ([facility], [facility]) Respiratory rate 15 /min 15 /min [facility] ( [facility], [facility]) Heart rate 94 /min 94 /min [facility] ([facility], [facility]) Diastolic blood pressure 74 mm[Hg] 74 mm[Hg] [facility] ([facility], [facility]) Systolic blood pressure 116 mm[Hg] 116 mm[Hg] [facility] ([facility], [facility])
[2020-05-07 20:49] LABS: BASO % 0.3 % (0.0-1.0); EOS # 0.1 10^3/uL (0.0-0.5); EOS % 0.8 % (0.0-3.0); HEMATOCRIT 36.8 % (36.0-47.0); LYMPH # 3.3 10^3/uL (1.5-5.0); LYMPH % 30.9 % (24.0-44.0); MEAN CORPUSCULAR HEMOGLOBIN 27.7 pg (27.0-33.0); MEAN CORPUSCULAR HGB CONC 32.6 g/dl (32.0-36.5); MONO # 0.4 10^3/uL (0.0-0.8); MONO % 3.6 % (0.0-5.0); NEUTROPHILS # 6.9 10^3/uL (1.5-8.5); NEUTROPHILS % 64.1 % (36.0-66.0); PLATELET COUNT, AUTOMATED 254 10^3/uL (150-450); RED BLOOD COUNT 4.33 10^6/uL (4.00-5.40); WHITE BLOOD COUNT 10.8 10^3/uL (4.0-10.0)
[2020-05-07 21:36] LABS: ALBUMIN 3.5 GM/DL (3.2-5.2); ALT/SGPT 20 U/L (12-78); BILIRUBIN,DIRECT 0.2 MG/DL (0.0-0.2); BILIRUBIN,TOTAL 0.8 MG/DL (0.2-1.0); BLOOD UREA NITROGEN 6 MG/DL (7-18); CALCIUM LEVEL 9.3 MG/DL (8.5-10.1); CARBON DIOXIDE LEVEL 21 MEQ/L (21-32); CHLORIDE LEVEL 107 MEQ/L (98-107); CREATININE FOR GFR 0.62 MG/DL (0.55-1.30); GLOMERULAR FILTRATION RATE > 60.0 (>60); GLUCOSE, FASTING 78 MG/DL (70-100); HCG, SERUM QUANTITATIVE 79249 MIU/ML; LIPASE 80 U/L (73-393); POTASSIUM SERUM 3.8 MEQ/L (3.5-5.1); SODIUM LEVEL 138 MEQ/L (136-145); TOTAL PROTEIN 7.3 GM/DL (6.4-8.2)
[2020-05-08] MEDS ORDERED: METOCLOPRAMIDE 10 MG TAB PO ONE (00:30)
--- OUTSIDE RECORDS SUMMARY | 2020-05-08 01:39 | CCD ---
Author Author [facility] Address Unknown Phone Unavailable Care Team Providers Care Medical Lead Name Role Phone Josh [phone] MD Luis RUSSELL Unavailable Unavailable Josh [phone] MD Luis RUSSELL Unavailable Unavailable Josh, [phone] MD Luis RUSSELL Unavailable Unavailable Mandappa, Selina [...] is protected by Article 27-F of the [facility] Public Health law. If you continue you may have access to information: Regarding HIV / AIDS; Provided by facilities licensed or operated by the [facility] Office of Mental Health; or Provided by the [facility] Office for People With Developmental Disabilities. If such information is present, then the following [facility] mandated warning applies: This information has been [...] law may result in a fine or nursing home sentence or both. A general authorization for the release of medical or other information is NOT sufficient authorization for further disc losure. Family History Family Member Name Family Member Gender Family Member Status Date o f Status Description Data Source(s) Unknown Condition [facility] Unknown Condition [facility] Encounters Encounter Providers Location Date Indications Data Source(s ) Outpatient Attender: CHINEDU voss 04/15/2020 04:35:00 PM EST [facility] ([facility]) Recurring Patient Referrer: Selina Levin CASAC 01/22/2020 03:45:50 PM EDT [facility] Outpatient Attender: Frankie Giraldo MDReferrer: No Family Doctor Provided 12/13/2019 01:48:00 PM EDT - 12/13/2019 02:15:00 PM EDT [facility] Outpatient Attender: [id number] Luis Moreno MDReferre r: No Family Doctor Provided 12/03/2019 12:23:00 PM EDT - 12/03/2019 01:00:00 PM EDT [facility] System Outpatient Attender: Josefina Muse MDReferrer: No Family Doctor Provided 12/03/2019 10:50:00 AM EDT - 12/03/2019 12:10:00 PM EDT [facility] System Outpatient Attender: Frankie Giraldo MD 0 02:16:00 PM EDT - 11/19/2019 02:58:00 PM EDT [facility] Medic[facility] Medication Brand Name Start Date Product Form Dose Route Admi nistrative Instructions Pharmacy Instructions Status Indications Reaction Description Data Source(s) Ondansetron 4 MG Disintegrating Oral Tablet Ondansetron 04/15/2020 12:00:00 AM EST active [facility] ([facility]) Fluconazole 150 MG Oral Tablet Fluconazole 12/03/2019 12:10:48 PM EDT 150 MG completed [facility] Dicloxacillin 500 MG Oral Capsule Dicloxacillin 12/03/2019 12:05:58 PM EDT 500 MG completed [facility] 800-160 mg 10/25/2019 12:00:00 AM EDT tablet 14 TAKE ONE TABLET BY MOUTH TWICE A DAY FOR 7 DAYS TAKE ONE TABLET BY MOUTH TWICE A DAY FOR 7 DAYS SOLD: 10/25/2019 [facility] Insurance Providers Payer name Policy type / Coverage type Policy ID Covered green party ID Covered green party's relationship to parks Policy Parks Plan Information [facility] HUMANA [id number] HU2 [id number] [employer] [place] [id number] FA2 [id number] Blue Cross Blue Shield P [id number] SELF [id number] EXCELLUS BCBS B [id number] S [id number] [place]MANA [place] [id number] S [id number] EXCELLUS BCBS B [id number] S H [id number] NCO EPALS [id number] SP [id number] Surgeries/Procedures Procedure Description Date Indications Data Source(s) RADEX ANKLE COMPLETE MINIMUM 3 VIEWS 12/31/2019 12:00: 00 AM EDT [facility] ([facility]) RADEX FOOT COMPLETE MINIMUM 3 VIEWS 12/31/2019 12:00:0 0 AM EDT [facility] ([facility]) Results ID Date Data Source [id number] 04/15/2020 12:00:00 AM EST [facility] Name Value Range Interpretation Code Description Data Ashley rce(s) Supporting Document(s) SARS coronavirus 2 Ag Negative [facility] This lab was ordered by [facility] and [facility] ID Date Data Source [id number] 12/13/2019 01:54:00 PM EDT [facility] System Name: DAO OWENS : 1995 Age: 24 MR#: [id number] Admit Date: 12/13/19 Provider: Frankie Giraldo MD [...] Reasons: Post-Op follow-Up Nurse Note: wound check Historic Preservationist Required: No Is patient in pain?: Yes (abdominal tenderness) Pain scale (1-10): 1 Allergies No Known Drug Allergies Allergy (Unverified 12/03/19 17:52) Coronavirus Screening Screening Have you traveled outside of [facility] or [facility] in the last 14 days.: No Has patient experienced coronavirus symptoms: No PFSH Medical History Bladder problem Rickets Right ovarian cyst Surgical History History of left salpingo-oophorectomy Hx laparoscopic cholecystectomy [place] teeth extracted Family History Father Asthma Mother [...] 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 home: No current occupational status: unemployed pets and [...] 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 No other concerns. 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 [facility]. In February 2019, patient had an IUD [...] incision since then. [place], [place], he is in the . Was evaluated by general surgery at [facility] on 11/20/2019. She also told him she [...] avoiding coitus. 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 (2) Postoperative wound infection: Status: Acute Code(s): T81.49XA - Infection following a procedure, other surgical site, initial encounter SNOMED Code(s): 33864261 Category: Medical Plan - Josefina Muse MD: [...] N97.9 - Female infertility, unspecified SNOMED Code(s): 6608906 Category: Medical Plan - Josefina Muse MD: [...] rce(s) Supporting Document(s) ID Date Data Source [id number] 11/19/2019 02:03:00 PM EDT [facility] Name: DAO OWENS : 1995 Age: 24 MR#: [id number] Admit Date: 11/19/19 Provider: Frankie Giraldo MD [...] tube 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 a benign tumor Historic Preservationist Required: No Is patient in pain?: Yes (umbilical area) Pain scale (1-10): 2 Allergies No Known Drug Allergies Allergy (Unverified 11/19/19 14:23) Coronavirus Screening Screening Have you traveled outside of [facility] or [facility] in the last 14 days.: No Has patient experienced coronavirus symptoms: No [facility] Medical History (Updated 11/19/19 @ 14:32 by [...] well as a couple of times at [facility]. Apparently she had been on antibiotics for [...] Unspecified ovarian cyst, right side SNOMED Code(s): 71995149 Category: Medical Additional Comments Additional Comments: Dao [...] discomfort I recommended she follow-up with her supervisor char house. I have asked her to contactthe surgery [...] co mpleted Patient has never smoked [facility] ([facility]) 12/03/2019 11:27:13 AM EDT Never smoker completed Never s [facility] Smoking 12/03/2019 11:27:00 AM EDT Never smoker completed Never s [facility] 11/19/2019 02:27:46 PM EDT Former smoker completed Former smoker [facility] Smoking 11/19/2019 02:27:00 PM EDT Former smoker completed Former smoker [facility] Vital Signs ID Date Data Source UNK Name Value Range Interpretation Code Description Data Source(s) Body mass index (BMI) [Ratio] 37.8 kg/m2 37.8 k g/m2 [facility] ([facility]) Body height 64 [in_i] 64 [in_i] [facility] ([facility]) 5'4" Body weight 220.00 [lb_av] 220.00 [lb_av] MEDEN T ([facility], [facility]) Body temperature 98.2 [degF] 98.2 [degF] [facility] ([facility], [facility]) Oxygen saturation in Arterial blood by Pulse oximetry 99 % 99 % [facility] ([facility], [facility]) Respiratory rate 15 /min 15 /min [facility] ( [facility], [facility]) Heart rate 94 /min 94 /min [facility] ([facility], [facility]) Diastolic blood pressure 74 mm[Hg] 74 mm[Hg] [facility] ([facility], [facility]) Systolic blood pressure 116 mm[Hg] 116 mm[Hg] [facility] ([facility], [facility])
[2020-05-08] MEDS ORDERED: REGL10TA6 PO (01:44)
[2020-05-08 02:21] VITALS: BP 130/59
--- NOTE | 2020-05-08 19:26 | ECGEPIP ---
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
== END 2020-05-08 02:15 | disposition home or self-care (01) ==
LOC: M ED 17:43
DX: O21.0 Mild hyperemesis gravidarum (principal); Z3A.00 Weeks of gestation of pregnancy not specified; Z79.899 Other long term (current) drug therapy

== ENCOUNTER → 2020-06-08 | Outpatient (REF) | payer BC, OTHER ==
[~2020-06-08] MED LIST changes: +REGL10TA6 PO
[2020-06-08 14:07] LABS: HEMATOCRIT 37.6 % (36.0-47.0); HEMOGLOBIN 12.1 g/dl (12.0-15.5); MEAN CORPUSCULAR HEMOGLOBIN 27.9 pg (27.0-33.0); MEAN CORPUSCULAR HGB CONC 32.2 g/dl (32.0-36.5); MEAN CORPUSCULAR VOLUME 86.8 fl (80.0-96.0); PLATELET COUNT, AUTOMATED 248 10^3/uL (150-450); RED BLOOD COUNT 4.33 10^6/uL (4.00-5.40); WHITE BLOOD COUNT 9.5 10^3/uL (4.0-10.0)
[2020-06-08 14:43] LABS: GLUCOSE CHALLENGE TEST 1 HOUR 120 MG/DL (LESS THAN 140)
[2020-06-08 15:39] LABS: HEPATITIS C VIRUS ABY INDEX < 0.0 INDEX (<0.8); HIV 1&2 SCREEN CENTAUR NEGATIVE (NEGATIVE)
== END ==
LOC: M PLALAB 09:01
PROVIDERS: ATTEND Obstetrics & Gynecology
DX: O99.211 Obesity complicating pregnancy, first trimester (principal); Z3A.00 Weeks of gestation of pregnancy not specified

== ENCOUNTER → 2020-07-02 | Outpatient (CLI) | payer BC, OTHER | LOC: M WHC 15:52 | PROVIDERS: ATTEND Obstetrics & Gynecology | DX: Z34.92 Encounter for supervision of normal pregnancy, unspecified, second trimester (principal); Z3A.15 15 weeks gestation of pregnancy; Z53.9 Procedure and treatment not carried out, unspecified reason ==

== ENCOUNTER → 2020-07-27 | Outpatient (CLI) | payer BC, OTHER ==
--- NOTE | 2020-07-27 17:16 | REP ---
INDICATION: ANATOMY. COMPARISON: None. TECHNIQUE: Transabdominal obstetric sonography. FINDINGS: Scanning through the gravid uterus demonstrates a viable single intrauterine gestation in variable lie. motion is observed and heart rate is recorded at 123 beats per minute. A posterior placenta is seen, grade 0, without evidence of placenta previa. Closed cervical length is measured at 3.5 cm transabdominally. No extrauterine abnormality is observed. Amniotic fluid is subjectively normal. No anomaly is seen. The following anatomic structures are identified and felt to be sonographically unremarkable: cranium, choroid plexus, cavum, cerebellum and posterior fossa, lungs, four-chamber heart with left and right ventricular outflow tract views, diaphragm, left-sided stomach, abdominal wall cord insertion, three-vessel umbilical cord, kidneys and bladder, spine, and upper and lower extremities. Facial profile is less than optimally visualized today due to position. Biometry chart: BPD 4.7 cm, 20 weeks 0 days Head circumference 17.1 cm, 19 weeks 5 days Abdominal circumference 14.8 cm, 20 weeks 1 day Femur length 3.3 cm, 20 weeks 1 day Humeral length 3.1 cm, 20 weeks 1 day HC AC ratio normal 1.16 Cephalic index normal 0.76 Estimated weight 330 g, 0 lb 11 oz, greater than 97th percentile for 18 weeks 5 days IMPRESSION: Viable single intrauterine gestation at 20 weeks 0 days by today's composite sonographic criteria. GERRI by today's sonography 14 December 2020. No complication identified. Expected gestational age estimate from known GERRI of 23 December 2020 is 18 weeks 5 days. <Electronically signed by Manjit Santiago > 07/27/20 [id number]
== END ==
LOC: M WHC 13:38
PROVIDERS: ATTEND Obstetrics & Gynecology
DX: Z36.89 Encounter for other specified antenatal screening (principal); Z3A.15 15 weeks gestation of pregnancy